=== PATIENT | female | born 1955 | race Two or more races ===

== ENCOUNTER 2017-01-09 09:59 | Emergency (ER) | payer OTHER ==
[2017-01-09 10:07] VITALS: TEMP 98.2; BMI 29.0
--- NOTE | 2017-01-09 10:34 | PDOC ---
*Physical Exam - Vital Signs Last Vital Signs Temp Pulse Resp BP Pulse Ox 98.2 F 68 18 156/98 100 01/09/17 10:04 01/09/17 10:04 01/09/17 10:04 01/09/17 10:04 01/09/17 10:04 - Physical Exam Comments: 01/09/17 10:34 Pt seen by the Advanced Practice Provider under my direct supervision Pt interviewed and examined Ancillary studies reviewed I agree with plan as outlined by the Advanced Practice Provider ED Treatment Course - LABORATORY CBC & Chemistry Diagram: 01/09/17 11:30 01/09/17 11:30 *DC/Admit/Observation/Transfer Diagnosis at time of Disposition: Headache Qualifiers: Headache type: unspecified Headache chronicity pattern: acute headache Intractability: not intractable Qualified Code(s): R51 - Headache - Discharge Dispostion Disposition: HOME Condition at time of disposition: Stable - Referrals Referrals: Suresh Ramos MD [Primary Care Provider] - - Patient Instructions Printed Discharge Instructions: DI for Headache Additional Instructions: Rest, drink lots of fluids: Teas, water, soups Jessica hamida, carbonated beverages for the bubbles May try peppermint teas Avoid heavy , spicy or fatty foods until symptoms have resolved Avoid contact with others until fevers and symptoms resolved Lots of handwashing and good hygiene Continue [id number] medications for symptomatic relief Tylenol or Motrin for fever and pain Followup with private physician in one to 2 days as needed Return to emergency department for worsened symptoms, fevers, dehydration - Post Discharge Activity Work/School Note: Back to Work
--- NOTE | 2017-01-09 10:55 | PDOC ---
History of Present Illness - General Chief Complaint: Headache Stated Complaint: BLOOD PRESSURE PROBLEM Time Seen by Provider: 01/09/17 10:25 History Source: Patient Exam Limitations: No Limitations - History of Present Illness Initial Comments: 01/09/17 10:54 Here for evaluation of right sided posterior headache pain onset this morning upon arising. has some "weakness" to her right eye however vision not impaired. Denies numbness or tingling to hands or feet, denies any mental status changes, but has multiple other complaints. headache was worse this morning but is resolving. is #7 on a 1-10 scale and is primarily right occipital. Patient had a "mini TIA" last year and was admitted for 3 days at [facility]. had some left-sided weakness at that time which was resolved with physical therapy. Patient also suffers from fibromyalgia and chronic fatigue syndrome, is disabled. recently he has had no URI symptoms, no cough shortness of breath, no palpitations chest pain, no nausea vomiting diarrhea or constipation. bowel and bladder are working normally. No changes in behavior or activity this past week. Has been taking her medications as prescribed. Was told if blood pressure valentin greater than 150 systolic should be evaluated as her blood pressure was greater than that with her mini stroke last year. was concerned and came to closest hospital. All of her physicians including her neurologist whom she saw yesterday is at [facility]. 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 01/09/17 10:56 Timing/Duration: reports: 4-6 hours, decreasing Severity: Yes: moderate Associated Symptoms: denies: fever/chills, loss of consciousness, nausea/ vomiting, slurred speech, tingling in legs/feet Past History - Travel Traveled outside of the country in the last 30 days: No Close contact w/someone who was outside of country & ill: No - Past Medical History Allergies/Adverse Reactions: Allergies Allergy/AdvReac Type Severity Reaction Status Date / Time Penicillins Allergy Rash Verified 01/09/17 10:04 Home Medications: Ambulatory Orders Amlodipine Besylate [Norvasc -] 5 tab PO DAILY 05/30/14 Lisinopril [Prinivil -] 1 tab PO DAILY 05/30/14 Omeprazole [Prilosec] 1 cap PO DAILY 05/30/14 Naproxen [Naprosyn -] 500 mg PO BID PRN 01/09/17 Ranitidine [Zantac -] 300 mg PO HS 01/09/17 Anemia: Yes Asthma: No Cancer: No Cardiac Disorders: No CVA: No COPD: No CHF: No Dementia: No Diabetes: No GI Disorders: Yes (GERD; H/H) Disorders: No HTN: Yes Hypercholesterolemia: No Liver Disease: No Seizures: No Thyroid Disease: No - Surgical History Abdominal Surgery: No Appendectomy: Yes Cardiac Surgery: No Cholecystectomy: Yes Lung Surgery: No Neurologic Surgery: No Orthopedic Surgery: No - Psycho/Social/Smoking Cessation Hx Anxiety: No Suicidal Ideation: No Smoking History: Never smoked Have you smoked in the past 12 months: No Information on smoking cessation initiated: No Hx Alcohol Use: No Drug/Substance Use Hx: No Substance Use Type: None Hx Substance Use Treatment: No Neuro Specific PMHX - Complaint Specific PMHX TIA: Yes (2016- resolved ) Review of Systems - Review of Systems Able to Perform ROS?: Yes Is the patient limited Grenadian proficient: Yes Constitutional: Yes: Symptoms Reported, See HPI, Malaise, Weakness. No: Chills , Loss of Appetite HEENTM: Yes: See HPI, Blurred Vision (states right eye is "less strong"). No: Symptoms Reported ABD/GI: Yes: See HPI. No: Symptoms Reported, Nausea : Yes: Symptoms Reported Musculoskeletal: Yes: See HPI. No: Symptoms Reported Integumentary: Yes: See HPI. No: Symptoms Reported Neurological: Yes: Symptoms reported, See HPI, Headache. No: Numbness, Paresthesia, Tingling, Tremors, Weakness, Unsteady Gait, Ataxia, Dizziness Psychiatric: Yes: Anxiety (is not suffering currently) All Other Systems: Reviewed and Negative *Physical Exam - Vital Signs Last Vital Signs Temp Pulse Resp BP Pulse Ox 98.2 F 68 18 156/98 100 01/09/17 10:04 01/09/17 10:04 01/09/17 10:04 01/09/17 10:04 01/09/17 10:04 - Physical Exam General Appearance: Yes: Nourished, Appropriately Dressed HEENT: positive: JENNIFER, Normal ENT Inspection, TMs Normal, Pharynx Normal Neck: positive: Supple. negative: Lymphadenopathy (R), Lymphadenopathy (L) Respiratory/Chest: positive: Lungs Clear Cardiovascular: positive: Regular Rhythm Gastrointestinal/Abdominal: positive: Normal Bowel Sounds, Soft. negative: Tender, Guarding, Rebound, Tenderness Neurologic: positive: care partner II-XII NML intact, Fully Oriented, Alert, Normal Mood/ Affect, Normal Response, Motor Strength 5/5, Finger to Nose (intact). negative : Abnormal Cranial NS, Numbness, Sensory Deficit ED Treatment Course - LABORATORY CBC & Chemistry Diagram: 01/09/17 11:30 01/09/17 11:30 Progress Note - Progress Note Progress Note: Right-sided posterior headache, with mild hypertension/158/89- , EKG chest x- ray and CAT scan to rule out any recurrent pathology Medical Decision Making - Medical Decision Making 01/09/17 13:27 feels much improved, headache resolved with Tylenol, repeat blood pressure 132systolic. Labs within normal limits and CAT scan does not reveal any significant pathology. Will discharge patient and have follow-up with her neurologist. Patient ready for discharge 01/09/17 18:55 *DC/Admit/Observation/Transfer Diagnosis at time of Disposition: Headache Qualifiers: Headache type: unspecified Headache chronicity pattern: acute headache Intractability: not intractable Qualified Code(s): R51 - Headache - Discharge Dispostion Disposition: HOME Condition at time of disposition: Stable Admit: No - Referrals Referrals: Suresh Ramos MD [Primary Care Provider] - - Patient Instructions Printed Discharge Instructions: DI for Headache Additional Instructions: Rest, drink lots of fluids: Teas, water, soups Jessica hamida, carbonated beverages for the bubbles May try peppermint teas Avoid heavy , spicy or fatty foods until symptoms have resolved Avoid contact with others until fevers and symptoms resolved Lots of handwashing and good hygiene Continue [id number] medications for symptomatic relief Tylenol or Motrin for fever and pain Followup with private physician in one to 2 days as needed Return to emergency department for worsened symptoms, fevers, dehydration - Post Discharge Activity Work/School Note: Back to Work
[2017-01-09] MEDS ORDERED: SODIUM CHLORIDE 1,000 ML IV SCH (11:00)
[2017-01-09] MEDS ORDERED: ACETAMINOPHEN 500 MG TABLET (FP) PO ONE (11:04)
[2017-01-09] MEDS ORDERED: ACETAMINOPHEN 325 MG TABLET (FP) ONE (11:08)
[2017-01-09 11:38] VITALS: BP 137/96; PULSE 65
[2017-01-09 11:41] LABS: BASOPHIL 0.2 % (0-2.0); EOSINOPHIL 7.2 % (0-4.5); MCH 23.4 pg (25.7-33.7); MEAN CELL VOLUME 70.8 fl (80-96); MEAN PLT VOLUME 9.2 fl (7.5-11.1); NEUTROPHILS 58.2 % (42.8-82.8); PLATELET COUNT 183 K/MM3 (134-434); RDW 15.9 % (11.6-15.6); WHITE BLOOD COUNT 7.9 K/mm3 (4.0-10.0)
[2017-01-09 11:43] LABS: URINE APPEARANCE CLEAR; URINE BILIRUBIN NEGATIVE (NEGATIVE); URINE BLOOD NEGATIVE (NEGATIVE); URINE COLOR STRAW; URINE GLUCOSE (UA) NEGATIVE (NEGATIVE); URINE KETONE NEGATIVE (NEGATIVE); URINE LEUK ESTERASE NEGATIVE (NEGATIVE); URINE NITRITE NEGATIVE (NEGATIVE); URINE PROTEIN NEGATIVE (NEGATIVE); URINE UROBILINOGEN NEGATIVE E.U./dl (0.2-1.0)
[2017-01-09 11:53] LABS: INR 0.96 (0.82-1.09); PROTHROMBIN TIME (PATIENT) 10.6 SEC (9.98-11.88)
[2017-01-09 12:01] LABS: ALBUMIN 3.7 g/dl (3.4-5.0); ALK PHOS 87 U/L (45-117); ANION GAP 7 (8-16); BILIRUBIN,TOTAL 0.4 mg/dL (0.2-1.0); CALCIUM 8.7 mg/dL (8.5-10.1); CO2 28 mmol/L (21-32); CREATININE 1.5 mg/dL (0.55-1.02); GLUCOSE,RANDOM 85 mg/dL (74-106); SGOT/AST 35 U/L (15-37); SGPT/ALT 53 U/L (12-78); TOT PROT 7.2 g/dl (6.4-8.2)
--- NOTE | 2017-01-09 12:22 | EKG ---
Test Reason : Blood Pressure : / mmHG Vent. Rate : 059 BPM Atrial Rate : 059 BPM P-R Int : 192 ms QRS Dur : 080 ms QT Int : 430 ms P-R-T Axes : 046 002 020 degrees QTc Int : 425 ms SINUS BRADYCARDIA MINIMAL VOLTAGE CRITERIA FOR LVH, MAY BE NORMAL VARIANT BORDERLINE ECG WHEN COMPARED WITH ECG OF 06-JUN-2016 13:42, NO SIGNIFICANT CHANGE WAS FOUND Confirmed by OSVALDO SANDOVAL, SANTOS ([id number]) on 01/09/2017 12:22:25 PM Referred By: Confirmed By:SANTOS RILEY MD
== END 2017-01-09 13:38 | disposition home or self-care (01) ==
LOC: JER 09:59
PROC: 3E0337Z Introduction of Electrolytic and Water Balance Substance into Peripheral Vein, Percutaneous Approach (ICD-10-PCS; principal; 2017-01-09)
DX: R51 Headache (principal); I10 Essential (primary) hypertension; K21.9 Gastro-esophageal reflux disease without esophagitis; K44.9 Diaphragmatic hernia without obstruction or gangrene
CPT/HCPCS: 36415; 70450-TC; 71010-TC; 80053; 81003; 85025; 85610; 93005; 93010; 99283-25

== ENCOUNTER 2020-03-26 01:54 | Inpatient (IN) | payer OTHER ==
[2020-03-26] MEDS ORDERED: ASPIRIN 325 MG TABLET PO ONE (02:13)
--- NOTE | 2020-03-26 02:13 | PDOC ---
History of Present Illness - General Chief Complaint: CVA/TIA Stated Complaint: NUMBNESS LEFT SIDE FACE Time Seen by Provider: 03/26/20 02:11 History Source: Patient Exam Limitations: No Limitations - History of Present Illness Initial Comments: Time Last known well: 9:30 PM - Out of TPA window Rebecca is a 64 yo F who says she has a history of multiple strokes, HTN, anemia, and GERD who presents to the ER with left lower facial droop, numbness and a headache. I was called by the triage nurse to evaluate the patient for stroke like symptoms. Patient states she was in her usual state of health until she went to bed tonight at 9:30 pm. She then woke up 2 hours later at 11:30 pm with a headache, left lower facial droop and weakness and was concerned so came into the ER. Denies other symptoms. PCP: Lance Ramos PSH: Appendectomy, cholecystectomy Allergies: Penicillins Social Hx: Denies smoking, drinking, or other substance abuse Past History - Medical History Allergies/Adverse Reactions: Allergies Allergy/AdvReac Type Severity Reaction Status Date / Time Penicillins Allergy Rash Verified 03/26/20 02:06 Home Medications: Ambulatory Orders Amlodipine Besylate [Norvasc -] 5 tab PO DAILY 05/30/14 Lisinopril [Prinivil -] 1 tab PO DAILY 05/30/14 Famotidine [Pepcid -] 40 mg PO DAILY 03/26/20 Aspirin [ASA -] 81 mg PO DAILY #30 tab.chew 03/28/20 Atorvastatin Ca [Lipitor] 80 mg PO HS #30 tablet 03/28/20 Anemia: No Asthma: No Cancer: No Cardiac Disorders: No CVA: No COPD: No CHF: No Dementia: No Diabetes: No (pre) GI Disorders: Yes (GERD; H/H) Disorders: No HTN: Yes Hypercholesterolemia: No Liver Disease: Yes (fatty liver) Seizures: No Thyroid Disease: No Other medical history: arthritis - Surgical History Abdominal Surgery: No Appendectomy: Yes Cardiac Surgery: No Cholecystectomy: Yes Lung Surgery: No Neurologic Surgery: No Orthopedic Surgery: No - Psycho-Social/Smoking History Smoking History: Never smoked Have you smoked in the past 12 months: No - Substance Abuse Hx (Audit-C & DAST Scrn) How often the patient has a drink containing alcohol: Never Score: In Men: 4 or > Positive; In Women: 3 or > Positive: 0 Screen Result (Pos requires Nsg. Audit-10AR): Negative Neuro Specific PMHX - Complaint Specific PMHX TIA: Yes (2016- resolved ) Review of Systems - Review of Systems Able to Perform ROS?: Yes Comments:: CONSTITUTIONAL: Absent: fever, no chills, no fatigue HEENT: Absent: rhinorrhea, nasal congestion, throat pain, throat swelling, difficulty swallowing, mouth swelling, ear pain, eye pain, visual Changes CARDIOVASCULAR: Absent: chest pain, syncope, palpitations, irregular heart rate, lightheadedness, peripheral edema RESPIRATORY: Absent: cough, shortness of breath, dyspnea with exertion, orthopnea, wheezing, stridor, hemoptysis GASTROINTESTINAL: Absent: abdominal pain, abdominal distension, nausea, vomiting, diarrhea, constipation, melena, hematochezia GENITOURINARY: Absent: dysuria, frequency, urgency, hesitancy, hematuria, flank pain, genital pain MUSCULOSKELETAL: Absent: myalgia, arthralgia, joint swelling SKIN: Absent: rash, itching, pallor HEMATOLOGIC/IMMUNOLOGIC: Absent: easy bleeding, easy bruising, lymphadenopathy, frequent infections ENDOCRINE: Absent: unexplained weight gain, unexplained weight loss, heat intolerance, cold intolerance NEUROLOGIC: Present: headache, focal weakness, unsteady gait Absent: paresthesias, dizziness, seizure, mental status changes, bladder or bowel incontinence PSYCHIATRIC: Absent: anxiety, depression, suicidal or homicidal ideation, hallucinations. *Physical Exam - Vital Signs Last Vital Signs Temp Pulse Resp BP Pulse Ox 98 F 77 18 154/94 100 03/26/20 02:01 03/26/20 02:01 03/26/20 02:01 03/26/20 02:01 03/26/20 02:01 - Physical Exam GENERAL: Well-appearing, well-nourished. No apparent distress. HEENT: Normocephalic, atraumatic. PERRL, EOM intact. CARDIOVASCULAR: Normal S1, S2. Regular rate and rhythm. PULMONARY: No evidence of respiratory distress. Lungs clear to auscultation bilaterally. No wheezing, rales or rhonchi. ABDOMEN: Soft, non-distended, non-tender. EXTREMITIES: Normal ROM in all four extremities. No gross deformities. SKIN: Warm, dry. No rash NEURO: Mental status: The patient alert and is oriented x3. Cranial nerves: There is a slight left lower facial droop. No slurring of words. Otherwise, Cranial nerves II through XII are intact Motor: The upper extremities are 5 over 5 in all muscle groups. The right lower extremity is 5 over 5 in all muscle groups. The left lower extremity is 3/5 strength in hip flexion and knee extension. Sensation: Sensation is intact to light touch throughout. Cerebellar: [id number] is normal in both upper extremities. [id number] is normal in both lower extremities. NIH Stroke Scale - Last Known Well Date/Time & Onset Date Last Known Well: 03/25/20 Time Last Known Well: 21:30 - Initial Evaluation Level of consciousness: Alert Ask patient the month and their age: Answers both correctly Ask patient to open & close eyes; make fist and let go: Obeys both correctly Best gaze (horizontal eye movement): Normal Visual field testing: No visual field loss Facial paresis (Show teeth/raise eyebrows/close eyes tight): Minor paralysis (flattened nasolabial fold, asymmetry on smiling) Motor Function: Left Arm: Normal Motor Function: Right Arm: Normal (extends arm 90 (or 45) degrees for 10 seconds without drift Motor Function: Left Leg: Drift Motor Function: Right Leg: Normal (extends leg 30 degrees for 5 seconds without drift) Limb Ataxia: No ataxia Sensory(Use pinprick test arms,legs,trunk,face/side to side): Normal Best language (Describe picture, name items, read sentences): No Aphasia Dysarthria (read several words): Normal articulation Extinction and Inattention: No abnormality - Total Score NIH Stroke Scale Score: 2 tPA Exclusion Checklist 0-3hr - Time Elapsed Date last known well: 03/25/20 Time last known well: 21:30 Elaspsed time: 3 Day(s) and 8 Hour(s) and 31 Minutes - Thrombolytic Therapy Candidate Is the patient eligible for Thrombolytic Therapy?: No - Exclusion Criteria 0-3hr SBP greater than 185 or DBP greater than 110mmHg despite tx: No Recent IC/spinal surgery,head trauma or stroke w/in last 3mo: No Hx of previous IC hemorrhage, IC neoplasm, AVM or aneurysm: No Active internal bleeding: No Blding diathesis(low plt ct, inc PTT,INR>1.7 or use of NOAC): No Symptoms suggest subarachnoid hemorrhage: No CT demonstrates multilobar infarct(>1/3 cerebral hemiphere): No Arterial puncture at noncompressible site in previous 7 days: No Blood glucose concentration less than 50mg/dL (2.7mmol/L): No - Relative Exclusion Criteria 0-3h Care team unable to determine eligibility: No IV/IA thrombolysis/thrombectomy @ another hosp prior arrival: No Life expectancy <1yr/severe co-morbid illness/EXTENSION WORK INSTRUCTOR on admit: No : No Patient/family refused: No Stroke severity too mild (non-disabling): Yes Recent acute SD (w/in previous 3 months): No Seizure at onset with postictal residual neuro impairments: No Major surgery or serious trauma w/in previous 14 days: No Recent GI or hemorrhage (w/in previous 21 days): No - Ineligibility reason(s) Reasons No tPA given: Outside of window - delayed arrival, See reason(s) noted above tPA Exclusion checklist 3-4.5h - Time Elapsed Date last known well: 03/25/20 Time last known well: 21:30 Elaspsed time: 3 Day(s) and 8 Hour(s) and 31 Minutes - Thrombolytic Therapy Candidate Is patient eligible for thrombolytic therapy: No - Exclusion Criteria 3-4.5 hr SBP greater than 185 or DBP greater than 110mmHg despite tx: No Recent IC/spinal surgery,head trauma or stroke<3mos.: No Hx IC hemorrhage, IC neoplasm, AV malformation or aneurysm: No Active internal bleeding: No Blding diathesis(low plt ct, inc PTT,INR>1.7 or use of NOAC): No Symptoms suggest subarachnoid hemorrhage: No CT demonstrates multilobar infarct(>1/3 cerebral hemiphere): No Arterial puncture at noncompressible site in previous 7 days: No Blood glucose concentration less than 50mg/dL (2.7mmol/L): No - Relative Exclusion Criteria 3-4.5 hr Care team unable to determine eligibility: No IV/IA thrombolysis/thrombectomy @ another hosp prior arrival: No Life expectancy <1 yr or severe co-morbid illness: No : No Patient/family refused: No Stroke severity too mild (non-disabling): Yes Recent acute SD (w/in previous 3 months): No Seizure at onset with postictal residual neuro impairments: No Major surgery or serious trauma w/in previous 14 days: No Recent GI or hemorrhage (w/in previous 21 days): No - Add'l Relative Exclusion 3-4.5 hr Age > 80: Yes Hx of both diabetes AND prior ischemic stroke: No Taking an oral anticoagulant regardless of INR: No Severe Stroke (NIHSS >25): No - Ineligibility reason(s) Reasons No tPA given: Outside of window - delayed arrival, See reason(s) noted above Critical Care Time/MDM Note - Medical Decision Making Note: Time Last known well: 9:30 PM - Out of TPA window Rebecca is a 64 yo F who says she has a history of multiple strokes, HTN, anemia, and GERD who presents to the ER with left lower facial droop, numbness and a headache. I was called by the triage nurse to evaluate the patient for stroke like symptoms. Patient states she was in her usual state of health until she went to bed tonight at 9:30 pm. She then woke up 2 hours later at 11:30 pm with a headache, left lower facial droop and weakness and was concerned so came into the ER. Denies other symptoms. Vital Signs Temp Pulse Resp BP Pulse Ox 98 F 77 18 154/94 100 03/26/20 02:01 03/26/20 02:01 03/26/20 02:01 03/26/20 02:01 03/26/20 02:01 DDx IBNLT: CVA/TIA, brain bleed, bells palsy, electrolyte/metabolic disturbance Plan: CVA/TIA workup, admit stroke floor, neuro consult Head CT: No acute bleed or other pathology - 325 of aspirin Discharge - Discharge Information Problems reviewed: Yes Clinical Impression/Diagnosis: Cerebrovascular accident (CVA) Qualifiers: CVA mechanism: thrombosis Precerebral and cerebral artery: unspecified precerebral artery Qualified Code(s): I63.00 - Cerebral infarction due to thrombosis of unspecified precerebral artery CKD (chronic kidney disease) Qualifiers: Chronic kidney disease stage: unspecified stage Qualified Code(s): N18.9 - Chr onic kidney disease, unspecified Condition: Stable Disposition: HOME - Admission Yes - Follow up/Referral - Patient Discharge Instructions - Post Discharge Activity
[2020-03-26] MEDS ORDERED: ASPIRIN 325 MG ENTERIC COATED TABLET (FP) ONE (02:49)
--- NOTE | 2020-03-26 02:51 | PDOC ---
Attending Attestation - Resident Resident Name: Ki Gifford - ED Attending Attestation I have performed the following: I have examined & evaluated the patient, The case was reviewed & discussed with the resident, I agree w/resident's findings & plan - HPI HPI: 03/26/20 03:53 Pt comes with neuro deficits: - Physicial Exam PE: 03/26/20 03:54 Agree with resident exam - Medical Decision Making 03/26/20 03:51 Patient Name: TERI JOHN THIS IS A PRELIMINARY REPORT DATE OF SERVICE: 2020-03-26 02:13:46 IMAGES: 220 EXAM: HEAD CT (STROKE) HISTORY: Rule out CVA COMPARISON: 01/09/17 FINDINGS: The ventricular system is midline and nondilated. The sulcal pattern is normal for the patient's age. There is no bleed, mass, extra-axial fluid collection or mass effect. No skull fracture or skull lesion is identified. The visualized paranasal sinuses and mastoid air cells are clear. IMPRESSION: No evidence of pathology. 03/26/20 05:18 Pt's labs are normal; cholesterol is elevated. 03/26/20 19:36 Pt will be signed out to the day ER team Discharge - Discharge Information Problems reviewed: Yes Clinical Impression/Diagnosis: Cerebrovascular accident (CVA) Qualifiers: CVA mechanism: thrombosis Precerebral and cerebral artery: unspecified precerebral artery Qualified Code(s): I63.00 - Cerebral infarction due to thrombosis of unspecified precerebral artery CKD (chronic kidney disease) Qualifiers: Chronic kidney disease stage: unspecified stage Qualified Code(s): N18.9 - Chronic kidney disease, unspecified Condition: Stable Disposition: HOME - Follow up/Referral - Patient Discharge Instructions - Post Discharge Activity
[2020-03-26 03:29] LABS: BASO % 0.8 % (0-2.0); EOS % 14.8 % (0-4.5); HEMOGLOBIN 11.4 GM/dL (10.7-15.3); LYMPH % 45.3 % (8-40); MCH 23.4 pg (25.7-33.7); MCHC 32.5 g/dl (32.0-36.0); MEAN PLT VOLUME 10.2 fl (7.5-11.1); MONO % 5.3 % (3.8-10.2); NEUT % 33.8 % (42.8-82.8); PLATELET COUNT 181 K/MM3 (134-434); RBC 4.86 M/mm3 (3.60-5.2); RDW 15.4 % (11.6-15.6); WHITE BLOOD COUNT 5.8 K/mm3 (4.0-10.0)
[2020-03-26 03:52] LABS: INR 1.01 (0.83-1.09); PROTHROMBIN TIME (PATIENT) 11.9 SEC (9.7-13.0)
[2020-03-26 03:55] LABS: ACTIVATED PTT 30.1 SECONDS (25.2-36.5)
[2020-03-26 04:03] LABS: ALBUMIN 3.6 g/dl (3.4-5.0); ALK PHOS 106 U/L (45-117); ANION GAP 8 MMOL/L (8-16); BILIRUBIN,TOTAL 0.2 mg/dL (0.2-1); BLOOD UREA NITROGEN 18.8 mg/dL (7-18); CHLORIDE 108 mmol/L (98-107); CHOLESTEROL 230 mg/dL (50-200); CO2 25 mmol/L (21-32); CREATININE 1.4 mg/dL (0.55-1.3); GLUCOSE,RANDOM 83 mg/dL (74-106); HDL CHOLESTEROL 57 mg/dL (40-60); LDL CHOLESTEROL (ONLY SJRH) 155 mg/dL (5-100); POTASSIUM 4.1 mmol/L (3.5-5.1); SGOT/AST 31 U/L (15-37); SGPT/ALT 34 U/L (13-61); SODIUM 141 mmol/L (136-145); TOT PROT 7.2 g/dl (6.4-8.2); TRIGLYCERIDES 162 mg/dL (0-150)
[2020-03-26 05:33] LABS: PH,URINE 6.5 (5.0-8.0); URINE APPEARANCE CLEAR; URINE BILIRUBIN NEGATIVE (NEGATIVE); URINE COLOR YELLOW; URINE GLUCOSE (UA) NEGATIVE (NEGATIVE); URINE KETONE NEGATIVE (NEGATIVE); URINE LEUK ESTERASE NEGATIVE (NEGATIVE); URINE NITRITE NEGATIVE (NEGATIVE); URINE PROTEIN NEGATIVE (NEGATIVE); URINE UROBILINOGEN 0.2 mg/dL (0.2-1.0)
--- NOTE | 2020-03-26 10:29 | HP ---
CHIEF COMPLAINT: L side weakness PCP: Lance Ramos HISTORY OF PRESENT ILLNESS: 64 yo F PMH TIA, HTN,pre-diabetes, anemia, and GERD, hiatal hernia , fatty liver who presents to the ER with left lower facial droop, numbness and a headache. Pt states that the symptoms began yesterday and her daughter noticed her slurring her words. she states she had a Left facial droop and L sided weakness. pt states that her last "mini-stroke" affected her R side but she did not have residual deficits. she states that when the symptoms began she had a headache and some dizziness. denies cp or shortness of breath. she states that when she measured her BP at home it was SBP 160s . she denies recent illness. she states she had an EGD one week ago and was told she has a hiatal hernia and to continue PPI ER course was notable for: (1)CT head neg for acute pathology (2)trop neg x1 Recent Travel: denies PAST MEDICAL HISTORY: see above PAST SURGICAL HISTORY: appendectomy, cholecystectomy Social History: Smoking:denies Alcohol: 1 x/week Drugs: denies Allergies Penicillins Allergy (Verified 03/26/20 02:06) Rash HOME MEDICATIONS: Home Medications Medication Instructions Recorded Amlodipine Besylate [Norvasc -] 5 tab PO DAILY 05/30/14 Lisinopril [Prinivil -] 1 tab PO DAILY 05/30/14 Naproxen [Naprosyn -] 500 mg PO BID PRN 01/09/17 Famotidine [Pepcid -] 40 mg PO DAILY 03/26/20 REVIEW OF SYSTEMS CONSTITUTIONAL: Absent: fever, chills, diaphoresis, generalized weakness, malaise, loss of appetite, weight change HEENT: Absent: rhinorrhea, nasal congestion, throat pain, throat swelling, difficulty swallowing, mouth swelling, ear pain, eye pain, visual changes CARDIOVASCULAR: Absent: chest pain, syncope, palpitations, irregular heart rate, lightheadedness, peripheral edema RESPIRATORY: Absent: cough, shortness of breath, dyspnea with exertion, orthopnea, wheezing, stridor, hemoptysis GASTROINTESTINAL: Absent: abdominal pain, abdominal distension, nausea, vomiting, diarrhea, constipation, melena, hematochezia GENITOURINARY: Absent: dysuria, frequency, urgency, hesitancy, hematuria, flank pain, genital pain MUSCULOSKELETAL: Absent: myalgia, arthralgia, joint swelling, back pain, neck pain SKIN: Absent: rash, itching, pallor NEUROLOGIC: Present: headache, L side weakness Absent: dizziness, unsteady gait, seizure, mental status changes, bladder or bowel incontinence PHYSICAL EXAMINATION Vital Signs - 24 hr 03/26/20 03/26/20 02:01 06:36 Temperature 98 F 97.8 F Pulse Rate 77 Pulse Rate [ 67 Left Apical] Respiratory 18 18 Rate Blood Pressure 154/94 Blood Pressure 159/103 H [Left Arm] O2 Sat by Pulse 100 97 Oximetry (%) GENERAL: Awake, alert, and fully oriented, in no acute distress. HEAD: Normal with no signs of trauma. EYES: Pupils equal, round and reactive to light, extraocular movements intact, sclera anicteric, conjunctiva clear EARS, NOSE, THROAT: oropharynx clear without exudates. Moist mucous membranes. NECK: Normal range of motion, supple without lymphadenopathy LUNGS: Breath sounds equal, clear to auscultation bilaterally. No accessory muscle use. HEART: Regular rate and rhythm, normal S1 and S2 + systolic murmur ABDOMEN: Soft, nontender, not distended, normoactive bowel sounds, no guarding, no rebound UPPER EXTREMITIES: 2+ pulses, warm, well-perfused. No cyanosis. No clubbing. No peripheral edema. RUE 5/5 Muscle strength. LUE in flexion, extension, manufacturing engineer supervisor strength 4/5 LOWER EXTREMITIES: 2+ pulses, warm, well-perfused. No calf tenderness. No peripheral edema. 5/5 RLE muscle strength. 4/5 LLE muscle strength in flexion NEUROLOGICAL: Cranial nerves II-XII intact. Normal speech. SKIN: Warm, dry, normal turgor, no rashes or lesions noted, normal capillary refill. Laboratory Last Values WBC 4.8 K/mm3 (4.0-10.0) 03/26/20 10:26 RBC 5.11 M/mm3 (3.60-5.2) 03/26/20 10:26 Hgb 12.1 GM/dL (10.7-15.3) 03/26/20 10:26 Hct 37.2 % (32.4-45.2) 03/26/20 10:26 MCV 72.8 fl (80-96) L 03/26/20 10:26 MCH 23.6 pg (25.7-33.7) L 03/26/20 10:26 MCHC 32.5 g/dl (32.0-36.0) 03/26/20 10:26 RDW 15.5 % (11.6-15.6) 03/26/20 10:26 Plt Count 182 K/MM3 (134-434) 03/26/20 10:26 MPV 9.8 fl (7.5-11.1) 03/26/20 10:26 Absolute Neuts (auto) 1.9 K/mm3 (1.5-8.0) 03/26/20 02:50 Neutrophils % 33.8 % (42.8-82.8) L D 03/26/20 02:50 Lymphocytes % 45.3 % (8-40) H D 03/26/20 02:50 Monocytes % 5.3 % (3.8-10.2) 03/26/20 02:50 Eosinophils % 14.8 % (0-4.5) H D 03/26/20 02:50 Basophils % 0.8 % (0-2.0) D 03/26/20 02:50 Nucleated RBC % 0 % (0-0) 03/26/20 02:50 PT with INR 11.90 SEC (9.7-13.0) 03/26/20 02:50 INR 1.01 (0.83-1.09) 03/26/20 02:50 PTT (Actin FS) 30.1 SECONDS (25.2-36.5) 03/26/20 02:50 Sodium 141 mmol/L (136-145) 03/26/20 10:26 Potassium 4.4 mmol/L (3.5-5.1) 03/26/20 10:26 Chloride 108 mmol/L (98-107) H 03/26/20 10:26 Carbon Dioxide 27 mmol/L (21-32) 03/26/20 10:26 Anion Gap 5 MMOL/L (8-16) L 03/26/20 10:26 BUN 15.3 mg/dL (7-18) 03/26/20 10:26 Creatinine 1.4 mg/dL (0.55-1.3) H 03/26/20 10:26 Est GFR (CKD-EPI)AfAm 46.23 03/26/20 10:26 Est GFR (CKD-EPI)NonAf 39.89 03/26/20 10:26 Random Glucose 81 mg/dL (74-106) 03/26/20 10:26 Calcium 9.1 mg/dL (8.5-10.1) 03/26/20 10:26 Phosphorus 3.9 mg/dL (2.5-4.9) 03/26/20 10:26 Magnesium 2.4 mg/dL (1.8-2.4) 03/26/20 10:26 Total Bilirubin 0.2 mg/dL (0.2-1) 03/26/20 10:26 AST 29 U/L (15-37) 03/26/20 10:26 ALT 34 U/L (13-61) 03/26/20 10:26 Alkaline Phosphatase 92 U/L (45-117) 03/26/20 10:26 Creatine Kinase 291 U/L (26-192) H 03/26/20 10:26 Creatine Kinase Index 0.6 % (0.0-5.0) 03/26/20 02:50 CK-MB (CK-2) 2.1 ng/mL (0.5-3.6) 03/26/20 02:50 Troponin I < 0.02 ng/ml (0.00-0.05) 03/26/20 02:50 Total Protein 7.4 g/dl (6.4-8.2) 03/26/20 10:26 Albumin 3.4 g/dl (3.4-5.0) 03/26/20 10:26 Triglycerides 162 mg/dL (0-150) H 03/26/20 02:50 Cholesterol 230 mg/dL (50-200) H 03/26/20 02:50 Total LDL Cholesterol 155 mg/dL (5-100) H 03/26/20 02:50 HDL Cholesterol 57 mg/dL (40-60) 03/26/20 02:50 Urine Color Yellow 03/26/20 05:00 Urine Appearance Clear 03/26/20 05:00 Urine pH 6.5 (5.0-8.0) 03/26/20 05:00 Ur Specific [place] 1.006 (1.010-1.035) L 03/26/20 05:00 Urine Protein Negative (NEGATIVE) 03/26/20 05:00 Urine Glucose (UA) Negative (NEGATIVE) 03/26/20 05:00 Urine Ketones Negative (NEGATIVE) 03/26/20 05:00 Urine Blood Negative (NEGATIVE) 03/26/20 05:00 Urine Nitrite Negative (NEGATIVE) 03/26/20 05:00 Urine Bilirubin Negative (NEGATIVE) 03/26/20 05:00 Urine Urobilinogen 0.2 mg/dL (0.2-1.0) 03/26/20 05:00 Ur Leukocyte Esterase Negative (NEGATIVE) 03/26/20 05:00 Carotid Duplex: Minimal intimal thickening at the common carotid bifurcation, bilaterally without evidence of hemodynamically significant stenosis, NASCET criteria Brain MRI: [id number] volume loss without evidence of acute intracranial pathology ASSESSMENT/PLAN: 64 yo F PMH TIA, HTN,pre-diabetes, anemia, and GERD, hiatal hernia , fatty liver who presents to the ER with left lower facial droop, numbness and a headache. Pt is admitted for TIA workup L sided weakness r/o TIA - CT head negative for acute pathology. MRI negative for acute pathology - pending Carotid duplex - A1C noted 5.8 - lipid panel reviewed - started on atorvastatin 20. will increase slowly if pt tolerates as pt presented initially with elevated CK - c/w asa 81 - cont tele monitoring -EKG reviewed, NSR HTN - will restart norvasc 5 daily - will start lopressor bid - cont to monitor GERD, hiatal hernia - last EGD last week - will cont protonix 40 daily Pre DM A1C 5.8 Hyperlipidemia - TC 230, TG 162, LDL 155 - started on atorvastatin CKD - Cr 1.4 - will gently hydrate - pending U lytes- seems as if it was drawn after ivf started- unreliable - cont to monitor avoid nephrotoxic agents. hold nsaids DVT ppx: Hep SQ Cont tele monitoring unable to reconcile meds. Family Medical History Family History: Unremarkable ATTENDING PHYSICIAN STATEMENT I saw and evaluated the patient. I reviewed the resident's note and discussed the case with the resident. I agree with the resident's findings and plan as documented. SUBJECTIVE: OBJECTIVE: ASSESSMENT AND PLAN:
[2020-03-26 10:39] LABS: HEMATOCRIT 37.2 % (32.4-45.2); HEMOGLOBIN 12.1 GM/dL (10.7-15.3); MCH 23.6 pg (25.7-33.7); MCHC 32.5 g/dl (32.0-36.0); MEAN CELL VOLUME 72.8 fl (80-96); MEAN PLT VOLUME 9.8 fl (7.5-11.1); PLATELET COUNT 182 K/MM3 (134-434); RBC 5.11 M/mm3 (3.60-5.2); RDW 15.5 % (11.6-15.6); WHITE BLOOD COUNT 4.8 K/mm3 (4.0-10.0)
[2020-03-26] MEDS ORDERED: ASPIRIN 81 MG CHEWABLE TABLETS ONE (10:51)
[2020-03-26] MEDS ORDERED: PANTOPRAZOLE 40 MG TABLET ONE (10:51)
[2020-03-26] MEDS: ASPIRIN 81 MG CHEWABLE TABLETS PO SCH (10:52)
[2020-03-26] MEDS: PANTOPRAZOLE 40 MG TABLET PO SCH (10:52)
[2020-03-26 10:54] LABS: ALBUMIN 3.4 g/dl (3.4-5.0); BILIRUBIN,TOTAL 0.2 mg/dL (0.2-1); BLOOD UREA NITROGEN 15.3 mg/dL (7-18); CALCIUM 9.1 mg/dL (8.5-10.1); CREATININE 1.4 mg/dL (0.55-1.3); MAGNESIUM 2.4 mg/dL (1.8-2.4); PHOSPHOROUS 3.9 mg/dL (2.5-4.9); POTASSIUM 4.4 mmol/L (3.5-5.1); TOT PROT 7.4 g/dl (6.4-8.2)
[2020-03-26] MEDS ORDERED: SODIUM CHLORIDE 1,000 ML IV SCH (11:15)
--- NOTE | 2020-03-26 12:10 | PN ---
Teaching Attending Note Name of Resident: Aydee Redding ATTENDING PHYSICIAN STATEMENT I saw and evaluated the patient. I reviewed the resident's note and discussed the case with the resident. I agree with the resident's findings and plan as documented. SUBJECTIVE: 64 year old female with known history of multiple strokes, HTN, anemia, GERD, hiatal hernia (seen on EGD one week ago) who presents to the ER with left lower facial droop, numbness and a headache. Apparently around midnight she spoke to her daughter and was told that she was slurring her words. OBJECTIVE: HEENT: EOMI, no oral lesions neck; supple chest; clear to auscultation, no rales, ronchi nor wheezing CVS: RRR, no murmurs abd; soft nontender, nondistended, +BS ext: no edema, feet are warm and dry body worker: she has mild weakness of the LLE with mild loss of control. RLE with 5/5 strength. She has normal strength with bilateral upper extremities. No slurring of words noted. no facial asymmetry. Able to perform alternating movements. Negative pronator drift. She is not slurring her words. ASSESSMENT AND PLAN: 1. TIA vs. CVA - CT scan of the head without acute pathology - Dr uDmont (neuro) will see patient. Decision on MRI per neuro - BP control - received aspirin and statin. will cont daily - PT evaluation - US carotids - cardiac monitoring - will check A1C - will cont observe for any further neurologic deficit 2. HTN - start beta sudarshan 3. DVT prophylaxis DW Dr Redding. Agreew with her exam and plans of care.
--- NOTE | 2020-03-26 12:39 | EKG ---
Test Reason : Blood Pressure : / mmHG Vent. Rate : 069 BPM Atrial Rate : 069 BPM P-R Int : 194 ms QRS Dur : 068 ms QT Int : 402 ms P-R-T Axes : 061 -15 016 degrees QTc Int : 430 ms NORMAL SINUS RHYTHM NORMAL ECG WHEN COMPARED WITH ECG OF 26-MAR-2020 02:42, NO SIGNIFICANT CHANGE WAS FOUND Confirmed by John Camara ([id number]) on 03/26/2020 12:39:33 PM Referred By: Param HO Confirmed By:John Camara
--- NOTE | 2020-03-26 12:41 | EKG ---
Test Reason : Blood Pressure : / mmHG Vent. Rate : 067 BPM Atrial Rate : 067 BPM P-R Int : 200 ms QRS Dur : 070 ms QT Int : 412 ms P-R-T Axes : 064 003 026 degrees QTc Int : 435 ms NORMAL SINUS RHYTHM NORMAL ECG WHEN COMPARED WITH ECG OF 09-JAN-2017 11:42, NO SIGNIFICANT CHANGE WAS FOUND Confirmed by John Camara ([id number]) on 03/26/2020 12:40:36 PM Referred By: Confirmed By:John Camara
--- NOTE | 2020-03-26 13:05 | CON.NEURO ---
Consult - Alcohol/Substance Use Hx Alcohol Use: No - Smoking History Smoking history: Never smoked Have you smoked in the past 12 months: No Home Medications - Allergies Allergies/Adverse Reactions: Allergies Allergy/AdvReac Type Severity Reaction Status Date / Time Penicillins Allergy Rash Verified 03/26/20 02:06 - Home Medications Home Medications: Ambulatory Orders Amlodipine Besylate [Norvasc -] 5 tab PO DAILY 05/30/14 Lisinopril [Prinivil -] 1 tab PO DAILY 05/30/14 Naproxen [Naprosyn -] 500 mg PO BID PRN 01/09/17 Famotidine [Pepcid -] 40 mg PO DAILY 03/26/20 Physical Exam-Neuro Vital Signs: Vital Signs Temperature 98.0 F 03/26/20 10:00 Pulse Rate 89 03/26/20 10:00 Respiratory Rate 18 03/26/20 10:00 Blood Pressure 135/92 03/26/20 10:00 O2 Sat by Pulse Oximetry (%) 98 03/26/20 10:00 Labs: CBC, BMP 03/26/20 10:26 03/26/20 10:26 INR, PTT INR 1.01 (0.83-1.09) 03/26/20 02:50 Assessment/Plan cc facial droopiness and slurring of speech HPI 64 year old female history of htn, prediabetes, anemia and gerd, hernia. patinet came with left facial droopiness, numbness and headache. Her ct head is normal Patinet is feeling better, and her bp was high. She do no take aspirin or statin at home. She denies any other focal neurological smptoms. (1)CT head neg for acute pathology (2)trop neg x1 Recent Travel: denies PAST MEDICAL HISTORY: see above PAST SURGICAL HISTORY: Social History: Smoking:denies Alcohol: 1 x/week Drugs: denies Allergies Penicillins Allergy (Verified 03/26/20 02:06) Rash HOME MEDICATIONS: Home Medications Medication Instructions Recorded Amlodipine Besylate [Norvasc -] 5 tab PO DAILY 05/30/14 Lisinopril [Prinivil -] 1 tab PO DAILY 05/30/14 Naproxen [Naprosyn -] 500 mg PO BID PRN 01/09/17 Famotidine [Pepcid -] 40 mg PO DAILY 03/26/20 ROS,FH,SH reviewed in chart Neurological examination Alert oriented x 3, neck is supple vss eomi, pupils reactive, ? right facial palsy very minimal almost unnoticeable moving all ext sensation is normal ct head unremarkable Assessment/Plan TIA , risk factor htn, previous storke/tia and hld, now symptoms almost reslved Plan: continue aspirin and statin - carotid ultrasound and mri of brain - speech consult - dvt prophylaxis Thanking you so much Lion Anderson md
[2020-03-26] MEDS ORDERED: amLODIPine BESYLATE 5 MG TABLET (FP) ONE (15:50)
[2020-03-26] MEDS: amLODIPine BESYLATE 5 MG TABLET (FP) PO SCH (16:45)
[2020-03-26] MEDS ORDERED: ATORVASTATIN CA 20 MG TABLET (FP) PO SCH (22:00)
[2020-03-26] MEDS ORDERED: ATORVASTATIN CA 20 MG TABLET (FP) ONE (22:14)
[2020-03-26] MEDS ORDERED: METOPROLOL TARTRATE 25 MG TABLET (FP) ONE (22:15)
[2020-03-26] MEDS ORDERED: HEPARIN NA (PORCINE) 5,000 UNITS/ML 1ML VIAL ONE (22:15)
[2020-03-26] MEDS: HEPARIN NA (PORCINE) 5,000 UNITS/ML 1ML VIAL SQ SCH (22:21)
[2020-03-26] MEDS: METOPROLOL TARTRATE 25 MG TABLET (FP) PO SCH (22:21)
[2020-03-27 02:20] VITALS: BMI 26.7
[2020-03-27] MEDS: HEPARIN NA (PORCINE) 5,000 UNITS/ML 1ML VIAL SQ SCH ×3 (05:42→21:14)
[2020-03-27 06:58] LABS: HEMATOCRIT 36.2 % (32.4-45.2); HEMOGLOBIN 11.5 GM/dL (10.7-15.3); MCH 22.9 pg (25.7-33.7); MCHC 31.8 g/dl (32.0-36.0); MEAN PLT VOLUME 9.9 fl (7.5-11.1); PLATELET COUNT 184 K/MM3 (134-434); RBC 5.02 M/mm3 (3.60-5.2); RDW 15.8 % (11.6-15.6); WHITE BLOOD COUNT 5.5 K/mm3 (4.0-10.0)
[2020-03-27 07:27] LABS: ALBUMIN 3.6 g/dl (3.4-5.0); BILIRUBIN,TOTAL 0.4 mg/dL (0.2-1); BLOOD UREA NITROGEN 18.7 mg/dL (7-18); CALCIUM 8.7 mg/dL (8.5-10.1); CREATININE 1.5 mg/dL (0.55-1.3); MAGNESIUM 2.2 mg/dL (1.8-2.4); PHOSPHOROUS 3.7 mg/dL (2.5-4.9); POTASSIUM 4.1 mmol/L (3.5-5.1); TOT PROT 7.1 g/dl (6.4-8.2)
[2020-03-27] MEDS ORDERED: PT OWN MED DRAWER 7, Y5N ONE (09:41)
[2020-03-27] MEDS ORDERED: amLODIPine BESYLATE 5 MG TABLET (FP) PO SCH (10:00)
[2020-03-27] MEDS ORDERED: LISINOPRIL PO SCH (10:00)
[2020-03-27] MEDS ORDERED: ACETAMINOPHEN 325 MG TABLET (FP) PO PRN (10:35)
[2020-03-27] MEDS: METOPROLOL TARTRATE 25 MG TABLET (FP) PO SCH ×3 (10:59→21:23)
[2020-03-27] MEDS: PANTOPRAZOLE 40 MG TABLET PO SCH (10:59)
[2020-03-27] MEDS: ASPIRIN 81 MG CHEWABLE TABLETS PO SCH (10:59)
[2020-03-27] MEDS: amLODIPine BESYLATE 5 MG TABLET (FP) PO SCH (10:59)
--- NOTE | 2020-03-27 17:26 | PN ---
Physical Exam: SUBJECTIVE: Patient seen and examined OBJECTIVE: Vital Signs Period Temp Pulse Resp BP Sys/Noguera Pulse Ox Last 24 Hr 97.7 F-98.8 F 56-87 15-18 112-141/78-92 96-100 GENERAL: The patient is awake, alert, and fully oriented, in no acute distress. HEENT: AT/NC, PERRLA, EOMI LUNGS: Breath sounds equal, clear to auscultation bilaterally, no wheezes, no crackles, no accessory muscle use. HEART: Regular rate and rhythm, S1, S2 without murmur, rub or gallop. ABDOMEN: Soft, nontender, nondistended, normoactive bowel sounds, no guarding, no rebound, no hepatosplenomegaly, no masses. EXTREMITIES: 2+ pulses, warm, well-perfused, no edema. NEUROLOGICAL: Cranial nerves II through XII grossly intact. Normal speech, gait not observed. no focal deficit noted Laboratory Results - last 24 hr 03/26/20 03/27/20 03/27/20 05:25 06:12 06:12 WBC 5.5 RBC 5.02 Hgb 11.5 Hct 36.2 MCV 72.0 L MCH 22.9 L MCHC 31.8 L RDW 15.8 H Plt Count 184 MPV 9.9 Sodium 141 Potassium 4.1 Chloride 108 H Carbon Dioxide 29 Anion Gap 4 L BUN 18.7 H Creatinine 1.5 H Est GFR (CKD-EPI)AfAm 42.53 Est GFR (CKD-EPI)NonAf 36.69 Random Glucose 79 Calcium 8.7 Phosphorus 3.7 Magnesium 2.2 Total Bilirubin 0.4 AST 23 ALT 30 Alkaline Phosphatase 91 Total Protein 7.1 Albumin 3.6 COVID-19 (NANCI) Not detected Active Medications Generic Name Dose Route Start Last Admin Trade Name Freq PRN Reason Stop Dose Admin Acetaminophen 650 mg 03/27/20 10:35 03/27/20 11:03 Tylenol - PO 650 mg Q6H PRN Administration Fever Or Pain Amlodipine Besylate 5 mg 03/26/20 15:30 03/27/20 10:59 Norvasc - PO 5 mg DAILY SARAH Administration Aspirin 81 mg 03/26/20 10:00 03/27/20 10:59 Asa - PO 81 mg DAILY SARAH Administration Atorvastatin Calcium 80 mg 03/26/20 22:00 03/26/20 22:21 Lipitor - PO 20 mg HS SARAH Administration Heparin Sodium (Porcine) 5,000 unit 03/26/20 22:00 03/27/20 05:42 Heparin - SQ 5,000 unit TID SARAH Administration Metoprolol Tartrate 25 mg 03/26/20 22:00 03/27/20 10:59 Lopressor - PO 25 mg BID SARAH Administration Pantoprazole Sodium 40 mg 03/26/20 10:30 03/27/20 10:59 Protonix - PO 40 mg DAILY SARAH Administration ASSESSMENT/PLAN: 64 yo lady PMH TIA, HTN, pre-DM, anemia, and GERD, hiatal hernia, NAFLD who presents to the ER with left lower facial droop, numbness and a headache # TIA symptoms completely resolved, however pt reported that this is 2nd episode over last years ASA, high dose statin MRI showing mild/mod volume loss without evidence of acute intracranial pathology carotid doppler no significant hemodynamic stenosis f/u TSH, b12 levels tele monitor reviewed will need to consider loop monitoring as outpatient neurology consult appreciated PT eval for discharge dispo GERD NAFLD HTN hiatal hernia DVT prophylaxis Visit type - Emergency Visit Emergency Visit: Yes ED Registration Date: 03/26/20 Care time: The patient presented to the Emergency Department on the above date and was hospitalized for further evaluation of their emergent condition. - New Patient This patient is new to me today: Yes Date on this admission: 03/27/20 - Critical Care Critical Care patient: No - Discharge Referral Referred to [facility] Med P.C.: No
--- NOTE | 2020-03-27 18:32 | PN ---
Progress Note (short form) - Note Progress Note: 64 year old female history of htn, prediabetes, anemia and gerd, hernia. patinet came with left facial droopiness, numbness and headache. Her ct head is normal Patinet is feeling better, and her bp was high. She do no take aspirin or statin at home. She denies any other focal neurological smptoms. -- No new complain, no focal neurological symptoms, she is feeing better, mri ofbrain and carotid ultrasound is wnl Neurological examination Alert oriented x 3, neck is supple vss eomi, pupils reactive, ? right facial palsy very minimal almost unnoticeable moving all ext sensation is normal ct head unremarkable mri ofbrain is normal Assessment/Plan TIA , risk factor htn, previous storke/tia and hld, now symptoms almost reslved Plan: continue aspirin and statin - carotid ultrasound and mri of brain were normal - can be discharged from neurological point of view Thanking you so much Lion Anderson md
[2020-03-27] MEDS ORDERED: ATORVASTATIN CA 80 MG TABLET (FP) PO SCH (22:00)
[2020-03-28] MEDS: HEPARIN NA (PORCINE) 5,000 UNITS/ML 1ML VIAL SQ SCH ×2 (05:04→15:28)
[2020-03-28 07:32] LABS: HEMATOCRIT 38.3 % (32.4-45.2); HEMOGLOBIN 12.2 GM/dL (10.7-15.3); MEAN CELL VOLUME 71.9 fl (80-96); MEAN PLT VOLUME 10.1 fl (7.5-11.1); PLATELET COUNT 201 K/MM3 (134-434); RBC 5.33 M/mm3 (3.60-5.2); RDW 15.7 % (11.6-15.6); WHITE BLOOD COUNT 5.6 K/mm3 (4.0-10.0)
[2020-03-28 08:04] LABS: ALBUMIN 3.3 g/dl (3.4-5.0); BILIRUBIN,TOTAL 0.3 mg/dL (0.2-1); BLOOD UREA NITROGEN 20.6 mg/dL (7-18); CALCIUM 8.5 mg/dL (8.5-10.1); CREATININE 1.4 mg/dL (0.55-1.3); POTASSIUM 4.1 mmol/L (3.5-5.1)
[2020-03-28] MEDS: amLODIPine BESYLATE 5 MG TABLET (FP) PO SCH (10:07)
[2020-03-28] MEDS: PANTOPRAZOLE 40 MG TABLET PO SCH (10:07)
[2020-03-28] MEDS: ASPIRIN 81 MG CHEWABLE TABLETS PO SCH (10:07)
[2020-03-28] MEDS: METOPROLOL TARTRATE 25 MG TABLET (FP) PO SCH (10:08)
--- NOTE | 2020-03-28 13:31 | DS ---
Physical Exam: SUBJECTIVE: Patient seen and examined OBJECTIVE: Vital Signs Period Temp Pulse Resp BP Sys/Noguera Pulse Ox Last 24 Hr 97.9 F-98.6 F 58-63 15-18 111-122/67-86 97-100 PHYSICAL EXAM GENERAL: The patient is awake, alert, and fully oriented, in no acute distress. HEAD: Normal with no signs of trauma. EYES: PERRL, extraocular movements intact, sclera anicteric, conjunctiva clear. ENT: Ears normal, nares patent, oropharynx clear without exudates, moist mucous membranes. NECK: Trachea midline, full range of motion, supple. LUNGS: Breath sounds equal, clear to auscultation bilaterally, no wheezes, no crackles, no accessory muscle use. HEART: Regular rate and rhythm, S1, S2 without murmur, rub or gallop. ABDOMEN: Soft, nontender, nondistended, normoactive bowel sounds, no guarding, no rebound, no hepatosplenomegaly, no masses. EXTREMITIES: 2+ pulses, warm, well-perfused, no edema. NEUROLOGICAL: Cranial nerves II through XII grossly intact. Normal speech, gait not observed. PSYCH: Normal mood, normal affect. SKIN: Warm, dry, normal turgor, no rashes or lesions noted. LABS Laboratory Results - last 24 hr 03/28/20 03/28/20 06:15 06:15 WBC 5.6 RBC 5.33 H Hgb 12.2 Hct 38.3 MCV 71.9 L MCH 23.0 L MCHC 32.0 RDW 15.7 H Plt Count 201 MPV 10.1 Sodium 142 Potassium 4.1 Chloride 111 H Carbon Dioxide 26 Anion Gap 5 L BUN 20.6 H Creatinine 1.4 H Est GFR (CKD-EPI)AfAm 46.23 Est GFR (CKD-EPI)NonAf 39.89 Random Glucose 81 Calcium 8.5 Total Bilirubin 0.3 AST 30 ALT 31 Alkaline Phosphatase 89 Total Protein 7.0 Albumin 3.3 L Vitamin B12 412 TSH 3.57 HOSPITAL COURSE: Date of Admission:03/26/20 Pt presented to ED for L lower facial droop, numbness and headache. CT negative for acute bleed. MRI showed negative for ischemia, lesions. Carotid doppler showed no significant hemodynamic stenosis. Pt was started on ASA, high dose statin for prevention. Symptoms resolved with return of full neurologic function. Pt to follow up with neurology and PCP out patient. Pt to also follow up with maintenance services dispatcher for loop recorder to check for arrhythmia. Date of Discharge: 03/28/20 Minutes to complete discharge: 36 Discharge Summary Problems reviewed: Yes Reason For Visit: CEREBROVASCULAR ACCIDENT (CVA) Current Active Problems CKD (chronic kidney disease) (Acute) Cerebrovascular accident (CVA) (Acute) Condition: Stable - Instructions Diet, Activity, Other Instructions: You came into the hospital for weakness. You had a brain MRI showing that you did not have a stroke. You were evaluated by a neurologist. You are started on atorvastatin 80 mg. please continue to take this nightly. Please take baby aspirin 81 mg daily Please continue your additional home medications as prescribed. Please follow up with your primary care physician, Dr Suresh Cisneros within 2 week to continue to monitor your improvement. You will need repeat chemistry panel for liver function studies.You will need iron studies for your anemia Please follow up with your neurologist, Dr. wing regarding your mini-stroke Please follow up with a maintenance services dispatcher as you may need a special device to further assess for arrhythmia Please continue to follow a low fat/ low sodium diet Please continue daily exercise If you have new, worsening, or concerning symptoms please return to the ED or call 911 Referrals: Suresh Ramos MD [Primary Care Provider] - 2 Weeks (LFTs s/p tia) Lebron Patel MD [Staff Physician] - 2 Weeks (loop recorder) Disposition: HOME - Home Medications Comprehensive Discharge Medication List: Ambulatory Orders Amlodipine Besylate [Norvasc -] 5 tab PO DAILY 05/30/14 Lisinopril [Prinivil -] 1 tab PO DAILY 05/30/14 Famotidine [Pepcid -] 40 mg PO DAILY 03/26/20 Aspirin [ASA -] 81 mg PO DAILY #30 tab.chew 03/28/20 Atorvastatin Ca [Lipitor] 80 mg PO HS #30 tablet 03/28/20 This patient is new to me today: No Emergency Visit: Yes ED Registration Date: 03/26/20 Care time: The patient presented to the Emergency Department on the above date and was hospitalized for further evaluation of their emergent condition. Critical Care patient: No - Discharge Referral Referred to [facility] Med P.C.: No ATTENDING PHYSICIAN STATEMENT I saw and evaluated the patient. I reviewed the resident's note and discussed the case with the resident. I agree with the resident's findings and plan as documented. SUBJECTIVE: OBJECTIVE: ASSESSMENT AND PLAN:
[2020-03-28 14:50] VITALS: BP 114/70; PULSE 70; TEMP 98.8
--- NOTE | 2020-03-28 18:46 | PN ---
Teaching Attending Note Name of Resident: Carlos Rizo ATTENDING PHYSICIAN STATEMENT I saw and evaluated the patient. I reviewed the resident's note and discussed the case with the resident. I agree with the resident's findings and plan as documented. SUBJECTIVE: Feeling well - no further facial tingling. No speech disturbance. No visual disturbance. No limb numbness/tingling. OBJECTIVE: Afebrile, hemodynamically Stable. Last Vital Signs Temp Pulse Resp BP Pulse Ox 98.8 F 70 18 114/70 100 03/28/20 14:49 03/28/20 14:49 03/28/20 14:49 03/28/20 14:49 03/28/20 14:49 HEENT - Afebrile, Hemodynamically Stable. Heart - S1, S2, RRR Lungs - clear to auscultation Abdomen - soft, non-tender. Bowel Sounds normal. Extremities - no calf tenderness. Neuro - AAO x 3. Partial L facial droop (unclear baseline). Tone/Power/sensation/coordination normal all extremities. Laboratory Results - last 24 hr 03/28/20 03/28/20 06:15 06:15 WBC 5.6 RBC 5.33 H Hgb 12.2 Hct 38.3 MCV 71.9 L MCH 23.0 L MCHC 32.0 RDW 15.7 H Plt Count 201 MPV 10.1 Sodium 142 Potassium 4.1 Chloride 111 H Carbon Dioxide 26 Anion Gap 5 L BUN 20.6 H Creatinine 1.4 H Est GFR (CKD-EPI)AfAm 46.23 Est GFR (CKD-EPI)NonAf 39.89 Random Glucose 81 Calcium 8.5 Total Bilirubin 0.3 AST 30 ALT 31 Alkaline Phosphatase 89 Total Protein 7.0 Albumin 3.3 L Vitamin B12 412 TSH 3.57 Discharge Medications Medication Instructions Recorded Amlodipine Besylate [Norvasc -] 5 tab PO DAILY 05/30/14 Lisinopril [Prinivil -] 1 tab PO DAILY 05/30/14 Famotidine [Pepcid -] 40 mg PO DAILY 03/26/20 Aspirin [ASA -] 81 mg PO DAILY #30 tab.chew 03/28/20 Atorvastatin Ca [Lipitor] 80 mg PO HS #30 tablet 03/28/20 ASSESSMENT AND PLAN: 64 year old female with history of TIA, HTN, CKD 3, Anemia, GERD, Hiatal hernia, NAFLD, presented with left lower facial droop, facial numbness and headache. 1. TIA 2nd episode in the past few years, not on ASA CT Head - no acute intracranial findings. Carotid Duplex - no hemodynamically significant stenosis. MRI Brain - mild to moderate volume loss, no acute findings. ECG - SR, no acute findings. Started on Aspirin, Statin Neurology/PCP follow up in 1-2 weeks with LFT check. Cardiology referral as out-patient for Holter/Loop recorder. 2. HTN - continue Norvasc, Lisinopril. 3. GERD - continue Famotidine. 4. Microcytosis without Anemia - no evidence of blood loss - for out-patient investigation. 5. CKD 3 - Stable. Creat appears to be at baseline. Medically and Neurologically stable for discharge.
--- NOTE | 2020-03-31 09:21 | EKG ---
Test Reason : Blood Pressure : / mmHG Vent. Rate : 069 BPM Atrial Rate : 069 BPM P-R Int : 182 ms QRS Dur : 070 ms QT Int : 406 ms P-R-T Axes : 055 -05 043 degrees QTc Int : 435 ms NORMAL SINUS RHYTHM NORMAL ECG WHEN COMPARED WITH ECG OF 26-MAR-2020 11:44, NO SIGNIFICANT CHANGE WAS FOUND Confirmed by EZEQUIEL KHAN MD ([id number]) on 03/31/2020 9:21:10 AM Referred By: Confirmed By:EZEQUIEL KHAN MD
== END 2020-03-28 15:54 | disposition home or self-care (01) | DRG 69 ==
LOC: JER 01:54 → JERBED 02:14 → JICU 03-27 01:42 → J7W 03-27 22:17
PROVIDERS: ADMIT Hospitalist
DX: G45.9 Transient cerebral ischemic attack, unspecified (principal); G81.94 Hemiplegia, unspecified affecting left nondominant side; E78.5 Hyperlipidemia, unspecified; N18.3 Chronic kidney disease, stage 3 (moderate); K21.9 Gastro-esophageal reflux disease without esophagitis; K76.0 Fatty (change of) liver, not elsewhere classified; I10 Essential (primary) hypertension; K44.9 Diaphragmatic hernia without obstruction or gangrene
CPT/HCPCS: 36415; 70450-TC; 70551-TC; 71045-TC-FY; 80053; 80061; 81003; 82550; 82553; 82565; 82607; 83036; 83721; 83735; 83930; 83935; 84100; 84300; 84443; 84484; 85025; 85027; 85610; 85730; 93005; 93010; 93880-TC; 97116-GP; 97161-GP; 99285-25; J1644; U0003